=== PATIENT | male | born 2000 | race African-American/Black ===

== ENCOUNTER 2023-10-28 02:22 | Day surgery (SDC) | payer OTHER, SELFPAY ==
[2023-10-09 10:49] VITALS: BMI 38.2
--- NOTE | 2023-10-24 09:14 | SUR.PREOP ---
Patient called regarding upcoming procedure. Reviewed preop instructions, appointment times, and procedure prep.
[2023-10-28 08:38] VITALS: BP 136/86; PULSE 78; RESP 16; TEMP 36.8; O2SAT 100; BMI 38.6
[2023-10-28] MEDS: LACTATED RINGERS 1,000 ML 150 ML IV CONT (08:57)
--- NOTE | 2023-10-28 09:43 | WPDANESEPPF ---
Anes - Initial Pre Proc Eval Procedure: Operation Date: 10/28/23 10:00 Proposed Procedures p Esophagogastroduodenoscopy - Johnathan Silveira MD Date/Time: 10/28/23 09:43 Surgeon: Johnathan Silveira MD Pre Op Diagnosis: GERD without esophagitis Patient Data Age: 23 Gender: M Height: 1.88 m Weight: 136.5 kg Last Vital Signs Temp 98.3 F 10/28/23 08:38 Pulse 78 10/28/23 08:38 Resp 16 10/28/23 08:38 BP 136/86 10/28/23 08:38 Pulse Ox 100 10/28/23 08:38 O2 Del Method Room Air 10/28/23 08:38 Allergies Allergy/AdvReac Type Severity Reaction Status Date / Time No Known Allergies Allergy Verified 10/03/23 13:02 Home Medications Medication Instructions Recorded Confirmed Type fluticasone propionate 50 2 spray intranasal DAILY #16 grams 03/28/23 10/09/23 Rx mcg/actuation nasal spray,suspension naproxen 500 mg tablet 500 mg PO BID PRN pain #60 tabs 10/03/23 10/09/23 Rx omeprazole 40 mg capsule,delayed 40 mg PO DAILY #90 caps 10/03/23 10/09/23 Rx release cholecalciferol (vitamin D3) 125 125 mcg PO DAILY #30 caps 10/23/23 Rx mcg (5,000 unit) capsule Patient hx anesthesia problems: none Family hx anesthesia problems: none Results Review: All pre-operative results and documents have been reviewed as part of the pre-operative evaluation. [facility] Surgical History Surgical History No pertinent past surgical history Family History Family History Grandparent Diabetes mellitus Social History Social History (Updated 10/03/23 @ 13:05 by Dariana Barclay MA) Smoking status: Never smoker Alcohol intake: never Alcohol use details: rarely Substance use: never Substance use type: does not use Lack of Transportation: No Lack of Food: Never True Current Housing: I Have Housing Concerned About Future Housing: No Difficulty Paying Gas/Electric Bills: No Difficulty Paying for Meds: No Currently Unemployed: No Education: High School Diploma/GED Living arrangements: with family Spiritual care concerns: No Anes - Eval Final PreProcedure Day of Procedure 10/28/23 09:43 Patient weight: obese Heart: regular rate and rhythm Lungs: clear to auscultation Airway: Mallampati scale class II Neurological: alert and oriented Last oral intake: >/= 8 hours ASA classification: II Emergent: no Anesthetic plan: proceed Anesthesia type and monitoring: general GIVS and standard monitoring Results Review: All pre-operative results and documents have been reviewed as part of the pre-operative evaluation. Informed Consent: The patient's anesthetic plan and its attendant risks and benefits were discussed with the patient/family/POA. Questions were solicited and answers provided to the satisfaction of the patient/family/POA.
--- NOTE | 2023-10-28 09:44 | PM.HPGS ---
History of Present Illness History of Present Illness Consent: Risks, benefits, and alternatives have been discussed and questions answered. Patient agrees to proceed with procedure. Chief complaint: GERD without esophagitis Narrative: Terell Nava is a 23 year old male with gerd, better if taking omeprazole- using for about 2 months but never had egd Review of Systems Constitutional: Constitutional: Denies headache(s) and Denies weakness Eyes: Eyes: Denies blurry vision ENT: Reports Normal hearing present, Denies headache(s) and Denies neck pain Cardiovascular: Cardiovascular: Denies chest pain and Denies dyspnea Respiratory: Respiratory: Denies dyspnea Gastrointestinal: Gastrointestinal: Reports no additional gastrointestinal complaints Genitourinary: Genitourinary: Denies dysuria Musculoskeletal: Musculoskeletal: Denies neck pain Integumentary/Breasts: Skin/Breast: Denies dry skin Neurologic: Reports Normal hearing present, Denies headache(s) and Denies weakness Psychiatric: Psychiatric: Denies anxiety Endocrine: Endocrine: Denies change in body appearance Hematologic/Lymphatic: Hematologic/Lymphatic: Denies easy bleeding Allergic/Immunologic: Allergic/Immunologic: Denies urticaria PMFSH Surgical History Surgical History No pertinent past surgical history Family History Family History Grandparent Diabetes mellitus Social History Social History (Updated 10/03/23 @ 13:05 by Dariana Barclay MA) Smoking status: Never smoker Alcohol intake: never Alcohol use details: rarely Substance use: never Substance use type: does not use Lack of Transportation: No Lack of Food: Never True Current Housing: I Have Housing Concerned About Future Housing: No Difficulty Paying Gas/Electric Bills: No Difficulty Paying for Meds: No Currently Unemployed: No Education: High School Diploma/GED Living arrangements: with family Spiritual care concerns: No Meds Home Medications and Allergies Home Medications Medication Instructions Recorded Confirmed Type fluticasone propionate 50 2 spray intranasal DAILY #16 grams 03/28/23 10/09/23 Rx mcg/actuation nasal spray,suspension naproxen 500 mg tablet 500 mg PO BID PRN pain #60 tabs 10/03/23 10/09/23 Rx omeprazole 40 mg capsule,delayed 40 mg PO DAILY #90 caps 10/03/23 10/09/23 Rx release cholecalciferol (vitamin D3) 125 125 mcg PO DAILY #30 caps 10/23/23 Rx mcg (5,000 unit) capsule Allergies Allergy/AdvReac Type Severity Reaction Status Date / Time No Known Allergies Allergy Verified 10/03/23 13:02 Vital Signs Vital Signs - 24 hr 10/28/23 08:38 Temperature 98.3 F Pulse Rate 78 Respiratory Rate 16 Blood Pressure 136/86 Pulse Oximetry 100 Oxygen Delivery Room Air Exam Const: General: comfortable and no acute distress HENMT: Face/Nose/Sinus: Normal nares present Eyes: General: appearance normal, both eyes and all related structures Neck: Neck: no JVD Resp: Auscultation: clear to auscultation bilaterally Cardio: Rate: regular rate Rhythm: regular rhythm GI: Inspection: non-distended GI Palp: Yes Soft to palpation Skin: General skin exam: normal color Neuro: General: gait normal Speech: normal speech Extrem: General: normal to inspection Psych: Mental Status: mental status grossly normal Assessment and Plan Assessment and plan (1) GERD (gastroesophageal reflux disease): Code(s): K21.9 - Gastro-esophageal reflux disease without esophagitis Status: Acute Assessment and Plan: egd with bx ppi is helping
[2023-10-28 10:05] VITALS: BP 138/85; PULSE 82; RESP 17; O2SAT 100
[2023-10-28 10:15] VITALS: BP 121/90; PULSE 81; RESP 18; O2SAT 100
[2023-10-28 10:25] VITALS: BP 141/75; PULSE 68; RESP 19; O2SAT 100
== END 2023-10-28 10:38 | disposition home or self-care (01) ==
PROVIDERS: PCP Nurse Practitioner Family; Visit Provider Internal Medicine Gastroenterology
PROC: 0DJ08ZZ Inspection of Upper Intestinal Tract, Via Natural or Artificial Opening Endoscopic (ICD-10-PCS; CPT 43235; principal; 2023-10-28 10:00)
DX: K20.0 Eosinophilic esophagitis (principal); E66.9 Obesity, unspecified; Z68.38 Body mass index [BMI] 38.0-38.9, adult
CPT/HCPCS: 43239; 88305; J2001; J2704; J7120